=== PATIENT | female | born 1990 | race Caucasian/White ===

== ENCOUNTER 2021-05-26 11:53 | Emergency (ER) | payer MEDICAID ==
[~2021-05-26] VITALS: Ht 165.1 cm; Wt 66.0 kg
[2021-05-26] MEDS ORDERED: LORAZEPAM 2MG/ML CPJ IV STA (12:21)
[2021-05-26] MEDS ORDERED: ONDANSETRON HCL 4MG/2ML INJ IV STA (12:21)
[2021-05-26] MEDS ORDERED: SODIUM CHLORIDE 0.9% 1,000 ML IV ONE (12:30)
[2021-05-26 12:48] LABS: HEMATOCRIT. 35.6 % (36.0-48.0); HEMOGLOBIN. 12.1 g/dL (12.0-16.0); MEAN CORPUSCULAR HEMOGLOBIN 30.9 pg (28.0-32.0); MEAN CORPUSCULAR VOLUME 91.3 fL (81.0-99.0); MEAN PLATELET VOLUME 7.6 fl (7.4-10.4); PLATELET 384 x1000/uL (130-400); RED CELL DISTRIBUTION WIDTH 13.8 % (11.6-14.6)
[2021-05-26 12:56] LABS: CHLORIDE 105 mEq/L (98-107)
[2021-05-26 13:00] LABS: ETHANOL BLOOD < 10 mg/dL
[2021-05-26 13:15] LABS: HCG SCREEN NEGATIVE
[2021-05-26 13:52] LABS: PLATELET ESTIMATE NORMAL
[2021-05-26] MEDS ORDERED: ONDANSETRON 4MG ODT PO ONE (18:45)
[2021-05-26 21:01] LABS: CLARITY URINE CLOUDY (CLEAR); COLOR URINE YELLOW (YELLOW); KETONES URINE NEGATIVE (NEGATIVE); LEUKOCYTE ESTERASE URINE 3+ (NEGATIVE); NITRITE URINE POSITIVE (NEGATIVE); OCCULT BLOOD URINE NEGATIVE (NEGATIVE); PROTEIN URINE NEGATIVE (NEGATIVE)
[2021-05-26 21:13] LABS: *AMPHETAMINES SCREEN URINE NEGATIVE (NEGATIVE); *BARBITURATES SCREEN URINE NEGATIVE (NEGATIVE)
[2021-05-26 21:14] LABS: *BENZODIAZEPINES SCREEN URINE NEGATIVE (NEGATIVE); *COCAINE SCREEN URINE NEGATIVE (NEGATIVE); METHADONE URINE SCREEN NEGATIVE (NEGATIVE); OPIATES URINE SCREEN NEGATIVE (NEGATIVE); PHENCYCLIDINE URINE SCREEN NEGATIVE (NEGATIVE)
[2021-05-26 21:15] LABS: CANNABINOID URINE SCREEN PRESUMTIVE POSITIVE (NEGATIVE)
[2021-05-26] MEDS ORDERED: CEFTRIAXONE 1 G PREMIX 50 ML IV NR (22:45)
[2021-05-27] MEDS: NITROFURANTOIN 100MG M/M CAPSULE PO SCH ×3 (00:21→21:47)
[2021-05-27] MEDS ORDERED: CITALOPRAM HYDROBROMIDE 10MG TABLET PO SCH (11:00)
[2021-05-27] MEDS: ARIPIPRAZOLE 5MG TABLET PO SCH ×2 (11:12→17:30)
[2021-05-27 22:00] VITALS: BP 117/76
== END 2021-05-27 14:09 | disposition short-term general hospital (02) ==
LOC: ER 12:12
DX: T40.7X1A Poisoning by cannabis (derivatives), accidental (unintentional), initial encounter (principal); F15.10 Other stimulant abuse, uncomplicated; F31.9 Bipolar disorder, unspecified; F17.210 Nicotine dependence, cigarettes, uncomplicated; R45.851 Suicidal ideations; D72.823 Leukemoid reaction; Z20.822 Contact with and (suspected) exposure to COVID-19; Y92.89 Other specified places as the place of occurrence of the external cause
CPT/HCPCS: 36415; 80053; 80305; 80307; 80320; 80329; 81003; 84703; 85025; 87077; 87086; 87186; 93005; 96365; 96375; 99285; C9803; J0696; J2060; J2405; J7030; Q0162; U0003; U0005; G0480